=== PATIENT | female | born 1985 | race Caucasian/White ===

== ENCOUNTER 2018-03-03 17:15 | Emergency (ER) | payer OTHER | END 2018-03-03 17:33 | disposition home or self-care (01) | LOC: FTE 17:15 → E/R 17:33 | DX: J45.901 Unspecified asthma with (acute) exacerbation (principal) | CPT/HCPCS: 99284; Z7502 ==

== ENCOUNTER 2018-10-29 10:14 | Emergency (ER) | payer OTHER | END 2018-10-29 11:53 | disposition home or self-care (01) | LOC: FTE 10:14 | DX: J06.9 Acute upper respiratory infection, unspecified (principal); J45.909 Unspecified asthma, uncomplicated | CPT/HCPCS: 87400; 87880; 99283 ==

== ENCOUNTER 2019-07-02 23:19 | Emergency (ER) | payer OTHER ==
[2019-07-03] MEDS: METHYLPREDNISOLONE 125 MG INJ IM (01:58)
== END 2019-07-03 03:11 | disposition home or self-care (01) ==
LOC: FTE 23:19
DX: S80.861A Insect bite (nonvenomous), right lower leg, initial encounter (principal); S80.862A Insect bite (nonvenomous), left lower leg, initial encounter; J45.909 Unspecified asthma, uncomplicated; W57.XXXA Bitten or stung by nonvenomous insect and other nonvenomous arthropods, initial encounter; Y92.9 Unspecified place or not applicable
CPT/HCPCS: 81025; 96372; 99284-25